=== PATIENT | male | born 1975 | race Caucasian/White ===

== ENCOUNTER 2018-08-23 16:10 | Emergency (ER) | payer MEDICAID ==
--- NOTE | 2018-08-23 16:36 | EDM.PDOC ---
ED HPI GENERAL MEDICAL PROBLEM - General Chief Complaint: Cardiovascular Problem Stated Complaint: DIZZY Time Seen by Provider: 08/23/18 16:21 Source of Information: Reports: Patient History Limitations: Reports: No Limitations - History of Present Illness INITIAL COMMENTS - FREE TEXT/NARRATIVE: HISTORY AND PHYSICAL: History of present illness: Patient is a 42-year-old male who presents to the emergency room today with complaints of dizziness over the past 48 hours. He states that he feels like the room is spinning when he is ambulating or turning his head. States symptoms subside if he sits still or is not moving. Patient denies any fever, chills, headache, change in vision, syncope or near syncope. Denies any chest pain, back pain, shortness of breath or cough. Denies any abdominal pain, nausea, vomiting, diarrhea, constipation or dysuria. Has not noted any blood in urine or stool. Patient has been eating and drinking appropriately. Review of systems: As per history of present illness and below otherwise all systems reviewed and negative. Past medical history: As per history of present illness and as reviewed below otherwise noncontributory. Surgical history: As per history of present illness and as reviewed below otherwise noncontributory. Social history: See social history for further information Family history: As per history of present illness and as reviewed below otherwise noncontributory. Physical exam: General: Well-developed and well-nourished 42-year-old male. Alert and oriented. Nontoxic appearing and in no acute distress. HEENT: Atraumatic, normocephalic, pupils equal and reactive bilaterally, negative for conjunctival pallor or scleral icterus, mucous membranes moist, TMs normal bilaterally, throat clear, neck supple, nontender, trachea midline. No drooling or trismus noted. No meningeal signs. No hot potato voice noted. Lungs: Clear to auscultation, breath sounds equal bilaterally, chest nontender. Heart: S1S2, regular rate and rhythm without overt murmur Abdomen: Soft, nondistended, nontender. Negative for masses or hepatosplenomegaly. Negative for costovertebral tenderness. Pelvis: Stable nontender. Genitourinary: Deferred. Rectal: Deferred. Skin: Intact, warm, dry. No lesions or rashes noted. Extremities: Atraumatic, moves all extremities per self with difficulty or deficits, negative for cords or calf pain. Neurovascular unremarkable. Neuro: Awake, alert, oriented. Cranial nerves II through XII unremarkable. Cerebellum unremarkable. Motor and sensory unremarkable throughout. Exam nonfocal. Notes: Patient has dizziness with lateral head turn. Sounds like he has BPPV. Today's lab work and imaging was benign. He did not get any relief with the fluids or meclizine. States he still feels very dizzy and is requesting something additional to help his symptoms. I will give him some IV Valium as he does have a ride to home. Patient did have relief with medications. We discussed the need for close follow -up with his primary care provider and may also need physical therapy for his symptoms. Supportive care measures were reviewed and discussed. Voices understanding and is agreeable to plan of care. Denies any further questions or concerns at this time. Diagnostics: CBC, CMP, troponin, EKG, head CT, orthostatic vital signs Therapeutics: IV fluid, meclizine, valium Prescription: Valium Impression: Vertigo Plan: 1. Take the medications as needed and as directed. 2. As we discussed he may need to do physical therapy for the Mati-Hallpike maneuver 3. Follow up with your primary care provider. Return to the ED as needed and as discussed. Definitive disposition and diagnosis as appropriate pending reevaluation and review of above. - Related Data Allergies Allergy/AdvReac Type Severity Reaction Status Date / Time Penicillins Allergy Hives Verified 08/23/18 16:17 Home Meds: Home Meds Cholecalciferol (Vitamin D3) [Vitamin D3] 1,000 unit PO DAILY 08/23/18 [History] Divalproex Sodium [Depakote] 750 mg PO DAILY 08/23/18 [History] Levothyroxine 75 mcg PO ACBREAKFAST 08/23/18 [History] Venlafaxine [Effexor] 500 mg PO DAILY 08/23/18 [History] atorvaSTATin [Lipitor] 10 mg PO BEDTIME 08/23/18 [History] diazePAM [Valium] 2 mg PO BID PRN #15 tab 08/23/18 [Rx] glipiZIDE [Glipizide] 5 gm MC DAILY 08/23/18 [History] metFORMIN [Glucophage] 500 mg PO BIDMEALS 08/23/18 [History] Past Medical History HEENT History: Reports: None Cardiovascular History: Reports: High Cholesterol Respiratory History: Reports: None Gastrointestinal History: Reports: None Genitourinary History: Reports: None Neurological History: Reports: None Psychiatric History: Reports: None Endocrine/Metabolic History: Reports: Diabetes, Type II Hematologic History: Reports: None Immunologic History: Reports: None Dermatologic History: Reports: None - Infectious Disease History Infectious Disease History: Reports: Chicken Pox - Past Surgical History Head Surgeries/Procedures: Reports: None Musculoskeletal Surgical History: Reports: Other (See Below) Other Musculoskeletal Surgeries/Procedures:: Right and left knee surgery Social & Family History - Family History Family Medical History: Noncontributory - Tobacco Use Smoking Status *Q: Never Smoker Second Hand Smoke Exposure: No - Caffeine Use Caffeine Use: Reports: None - Recreational Drug Use Recreational Drug Use: No ED ROS GENERAL - Review of Systems Review Of Systems: ROS reveals no pertinent complaints other than HPI. ED EXAM, GENERAL - Physical Exam Exam: See Below (See dictation) Course - Vital Signs Last Recorded V/S: Last Vital Signs Temp 97.8 F 08/23/18 16:26 Pulse 88 08/23/18 16:26 Resp 16 08/23/18 16:26 BP 150/99 H 08/23/18 16:26 Pulse Ox 98 08/23/18 16:26 Orthostatic Blood Pressure [ 149/92 Standing] Orthostatic Blood Pressure [ 139/89 Sitting] Orthostatic Blood Pressure [ 139/89 Supine] - Orders/Labs/Meds Orders: Active Orders 24 hr Category Date Time Status EKG Documentation Completion [RC] STAT Care 08/23/18 16:13 Active Orthostatic Vital Signs [RC] ASDIRECTED Care 08/23/18 16:13 Active Head wo Cont [CT] Stat Exams 08/23/18 16:13 Taken Labs: Laboratory Tests 08/23/18 08/23/18 Range/Units 16:35 16:35 WBC 8.19 (4.0-11.0) K/uL RBC 4.24 L (4.50-5.90) M/uL Hgb 13.0 (13.0-17.0) g/dL Hct 37.2 L (38.0-50.0) % MCV 87.7 (80.0-98.0) fL MCH 30.7 (27.0-32.0) pg MCHC 34.9 (31.0-37.0) g/dL RDW Std Deviation 39.2 (28.0-62.0) fl RDW Coeff of Mary 13 (11.0-15.0) % Plt Count 233 (150-400) K/uL MPV 9.20 (7.40-12.00) fL Neut % (Auto) 43.9 L (48.0-80.0) % Lymph % (Auto) 41.0 H (16.0-40.0) % [place] % (Auto) 10.3 (0.0-15.0) % Eos % (Auto) 4.6 (0.0-7.0) % Baso % (Auto) 0.2 (0.0-1.5) % Neut # (Auto) 3.6 (1.4-5.7) K/uL Lymph # (Auto) 3.4 H (0.6-2.4) K/uL [place] # (Auto) 0.8 (0.0-0.8) K/uL Eos # (Auto) 0.4 (0.0-0.7) K/uL Baso # (Auto) 0.0 (0.0-0.1) K/uL Sodium 139 (136-148) mmol/L Potassium 4.0 (3.5-5.1) mmol/L Chloride 102 (98-107) mmol/L Carbon Dioxide 29.2 (21.0-32.0) mmol/L BUN 12 (7.0-18.0) mg/dL Creatinine 1.0 (0.8-1.3) mg/dL Est Cr Clr Drug Dosing 116.19 mL/min Estimated GFR (MDRD) > 60.0 ml/min Glucose 110 H (74-106) mg/dL Calcium 9.1 (8.5-10.1) mg/dL Total Bilirubin 0.4 (0.2-1.0) mg/dL AST 32 (15-37) IU/L ALT 68 H (14-63) IU/L Alkaline Phosphatase 67 (46-116) U/L Troponin I < 0.050 (0.000-0.056) ng/mL Total Protein 7.6 (6.4-8.2) g/dL Albumin 3.7 (3.4-5.0) g/dL Globulin 3.9 (2.6-4.0) g/dL Albumin/Globulin Ratio 0.9 (0.9-1.6) Meds: Medications Discontinued Medications Generic Name Dose Route Start Last Admin Trade Name Delfinoq PRN Reason Stop Dose Admin Diazepam 2 mg 08/23/18 17:56 08/23/18 18:03 Valium IVPUSH 08/23/18 17:57 Not Given ONETIME ONE Diazepam Confirm 08/23/18 18:01 08/23/18 18:03 Valium Administered 08/23/18 18:02 Not Given Dose 5 mg .ROUTE .STK-MED ONE Diazepam 2 mg 08/23/18 18:04 08/23/18 18:05 Valium IVPUSH 08/23/18 18:05 2 mg ONETIME ONE Administration Sodium Chloride 1,000 mls @ 999 mls/hr 08/23/18 16:12 08/23/18 16:39 Normal Saline IV 08/23/18 17:12 999 mls/hr STAT ONE Administration Meclizine HCl 25 mg 08/23/18 16:13 08/23/18 16:39 Antivert PO 08/23/18 16:14 25 mg ONETIME ONE Administration Ondansetron HCl 4 mg 08/23/18 16:12 08/23/18 16:38 Zofran IVPUSH 08/23/18 16:13 4 mg ONETIME ONE Administration Departure - Departure Time of Disposition: 18:13 Disposition: Home, Self-Care 01 Clinical Impression: Vertigo Prescriptions: diazePAM [Valium] 2 mg PO BID PRN #15 tab PRN Reason: Dizziness Instructions: Benign Positional Vertigo Referrals: PCP,Unknown [Primary Care Provider] - Forms: ED Department Discharge Additional Instructions: The following information is given to patients seen in the emergency department who are being discharged to home. This information is to outline your options for follow-up care. We provide all patients seen in our emergency department with a follow-up referral. The need for follow-up, as well as the timing and circumstances, are variable depending upon the specifics of your emergency department visit. If you don't have a primary care physician on staff, we will provide you with a referral. We always advise you to contact your personal physician following an emergency department visit to inform them of the circumstance of the visit and for follow-up with them and/or the need for any referrals to a consulting specialist. The emergency department will also refer you to a specialist when appropriate. This referral assures that you have the opportunity for follow-up care with a specialist. All of these measure are taken in an effort to provide you with optimal care, which includes your follow-up. Under all circumstances we always encourage you to contact your private physician who remains a resource for coordinating your care. When calling for follow-up care, please make the office aware that this follow-up is from your recent emergency room visit. If for any reason you are refused follow-up, please contact the [facility] Emergency Department at and asked to speak to the emergency department charge nurse. [facility] [address] [place] [id number] [address] 1. Take the medications as needed and as directed. 2. As we discussed he may need to do physical therapy for the Kunkle-Hallpike maneuver 3. Follow up with your primary care provider. Return to the ED as needed and as discussed. - My Orders Last 24 Hours: My Active Orders 08/23/18 16:13 EKG Documentation Completion [RC] STAT Orthostatic Vital Signs [RC] ASDIRECTED Head wo Cont [CT] Stat - Assessment/Plan Last 24 Hours: My Active Orders 08/23/18 16:13 EKG Documentation Completion [RC] STAT Orthostatic Vital Signs [RC] ASDIRECTED Head wo Cont [CT] Stat
[2018-08-23] MEDS: Ondansetron 4 MG/2 ML SDV IVPUSH ONE (16:38)
[2018-08-23] MEDS: Meclizine 25 MG Tab PO ONE (16:39)
[2018-08-23] MEDS: Sodium Chloride 0.9% 1,000 ML IV ONE (16:39)
[2018-08-23 17:17] LABS: CHLORIDE,CL 102 mmol/L (98-107); SODIUM,NA 139 mmol/L (136-148)
--- NOTE | 2018-08-23 17:24 | CR ---
INDICATION: DIZZINESS TECHNIQUE: Chest 1 view. COMPARISON: None. FINDINGS: Cardiovascular and mediastinum: Heart size and vasculature are normal in caliber and appearance. Mediastinum is within normal limits. Lungs and pleural space: Lungs are clear. No sign of infiltrate or mass. No sign of pleural effusion. No pneumothorax. Bones and soft tissues: No significant findings. IMPRESSION: Unremarkable chest. Dictated by: Flavio Aaron MD @ 08/23/2018 17:21:45 (Electronically Signed)
[2018-08-23] MEDS: diazePAM 5 MG/ML MDV ONE (18:03)
--- NOTE | 2018-08-23 18:08 | CT ---
INDICATION: Dizziness TECHNIQUE: CT head without contrast. COMPARISON: None. FINDINGS: CSF spaces: Unremarkable. 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 Brain parenchyma: The rinaldi-white differentiation is normal. No sign of mass, hemorrhage, or midline shift. Skull base and calvarium: The visualized paranasal sinuses and mastoid air cells demonstrate no acute or significant findings. The visualized orbits are grossly unremarkable. No skull fractures. IMPRESSION: Unremarkable noncontrast head CT. Please note that all CT scans at this facility use dose modulation, iterative reconstruction, and/or weight-based dosing when appropriate to reduce radiation dose to as low as reasonably achievable. Dictated by Avery Cali MD @ Aug 23 2018 6:01PM Signed by Dr. Avery Cali @ Aug 23 2018 6:07PM
== END 2018-08-23 18:59 | disposition home or self-care (01) ==
LOC: MW.ED 16:10
DX: R42 Dizziness and giddiness (principal); E78.00 Pure hypercholesterolemia, unspecified; E11.9 Type 2 diabetes mellitus without complications; Z79.899 Other long term (current) drug therapy; Z88.0 Allergy status to penicillin; Z79.84 Long term (current) use of oral hypoglycemic drugs
CPT/HCPCS: 36415; 70450; 71045; 80053; 84484; 85025; 93005; 96361; 96374; 96375; 99284; A9270; J2405; J3360; J7040; 99283

== ENCOUNTER 2019-01-22 21:46 | Emergency (ER) | payer MEDICAID ==
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
[2019-01-22 23:00] LABS: BLOOD UREA NITROGEN,BUN 17 mg/dL (7.0-18.0); CARBON DIOXIDE,CO2 23.6 mmol/L (21.0-32.0); CHLORIDE,CL 104 mmol/L (98-107); GLUCOSE RANDOM 201 mg/dL (74-106); LIPASE 152 U/L (73-393); SODIUM,NA 139 mmol/L (136-148)
[2019-01-22] MEDS ORDERED: Iopamidol 755 MG/ML 500 ML Multipack Bottle IVPUSH ONE (23:24)
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
[2019-01-23] MEDS ORDERED: Morphine 2 MG/ML Syringe IM ONE (00:10)
== END 2019-01-23 01:00 | disposition home or self-care (01) ==
LOC: MW.ED 21:46
DX: S22.41XA Multiple fractures of ribs, right side, initial encounter for closed fracture (principal); S00.81XA Abrasion of other part of head, initial encounter; E04.1 Nontoxic single thyroid nodule; R74.0 Nonspecific elevation of levels of transaminase and lactic acid dehydrogenase [LDH]; E11.9 Type 2 diabetes mellitus without complications; E78.00 Pure hypercholesterolemia, unspecified; Z88.0 Allergy status to penicillin; Z79.899 Other long term (current) drug therapy; Z79.84 Long term (current) use of oral hypoglycemic drugs; V86.55XA Driver of 3- or 4- wheeled all-terrain vehicle (ATV) injured in nontraffic accident, initial encounter
CPT/HCPCS: 70450; 71260; 72125; 74177; 80053; 83690; 84484; 85025; 85610; 93005; 96372; 99284; J2270; Q9967